=== PATIENT | female | born 1990 | race Caucasian/White ===

== ENCOUNTER 2016-08-16 07:37 | Day surgery (SDC) | payer OTHER ==
[~2016-08-16] VITALS: Ht 154.9 cm; Wt 56.7 kg
[2016-08-16 08:11] VITALS: BP 111/64
[2016-08-16] MEDS ORDERED: NORCO 5/3251 TABLET PO (10:37)
[2016-08-16 11:04] LABS: INTERNAL CONTROL VALID? YES
[2016-08-16 11:04] LABS: INTERNAL CONTROL VALID? YES
[2016-08-16 11:14] VITALS: BP 108/48
[2016-08-16 11:45] VITALS: BP 110/56
== END 2016-08-16 11:55 | disposition home or self-care (01) ==
LOC: SDC 07:37
PROVIDERS: Surgery
PROC: 0JB70ZZ Excision of Back Subcutaneous Tissue and Fascia, Open Approach (ICD-10-PCS; principal; 2016-08-16)
DX: D17.1 Benign lipomatous neoplasm of skin and subcutaneous tissue of trunk (principal); Z80.3 Family history of malignant neoplasm of breast; Z80.41 Family history of malignant neoplasm of ovary
CPT/HCPCS: 84703; 88304; J1885; J2250; J2405; J3010; S0020